=== PATIENT | male | born 1975 | race Caucasian/White ===

== ENCOUNTER 2022-06-06 09:20 | Emergency (ER) | payer OTHER, SELFPAY ==
--- NOTE | ~2022-06-06 | XR_ITS ---
EXAMINATION: XR CHEST CLINICAL INFORMATION: Cough COMPARISON: None TECHNIQUE: Frontal view of the chest was obtained. FINDINGS: No significant abnormality is noted involving the heart, lungs, mediastinum, bony thorax or soft tissues. A small hiatal hernia is present. Old healed left-sided fourth and fifth rib fractures are present. XR/XR chest 1V IMPRESSION: No acute intrathoracic disease.
[2022-06-06 09:39] VITALS: BP 120/79; PULSE 84; RESP 20; TEMP 36.9; O2SAT 97; BMI 21.2
--- NOTE | 2022-06-06 10:15 | ED.URI ---
HPI - URI/Sore Throat General Chief Complaint: Upper Respiratory Symptoms Stated Complaint: congestion sore throat headache Time Seen by Provider: 06/06/22 09:31 Source: patient Mode of arrival: ambulatory History of Present Illness HPI Narrative: 46-year-old male who presents with headache, cough, sore throat, chills but denies any GI or symptoms. He is an occasional everyday smoker. Related Data Allergies Allergy/AdvReac Type Severity Reaction Status Date / Time Unable to Assess Allergy Verified 06/06/22 10:13 Review of Systems Review of Systems: Pertinent positives and negatives as stated in [facility] Past Medical History Source: nursing notes reviewed Social History Social History Advance Directives: No Physical Exam Vital Signs: Vital Signs: Last Vital Signs Temp 98.5 F 06/06/22 09:39 Pulse 84 06/06/22 09:39 Resp 20 06/06/22 09:39 BP 120/79 06/06/22 09:39 Pulse Ox 97 06/06/22 09:39 O2 Del Method 06/06/22 09:39 BMI result Body Mass Index 21.2 VITAL SIGNS: Reviewed. GENERAL: Well developed, well nourished, in no acute distress. HEAD: Normocephalic/atraumatic EYES: PERRLA, EOMI EARS: Ext canals without abnormality, TMs non-bulging and non-erythematous NOSE: Nares patent bilateral OROPHARYNX: no oral lesions noted, posterior pharynx clear and non-erythematous without noted tonsillar enlargement/erythema/exudates NECK: Supple, no adenopathy LUNGS: Normal breath sounds. No adventitious sounds or accessory muscle use. SpO2<97> CARDIOVASCULAR: Regular rate and rhythm without noted murmurs, no JVD or lower extremity edema. ABDOMEN: Soft, non-tender, non-distended with bowel sounds. MUSCULOSKELETAL: No tenderness, deformities, or effusions noted on gross inspection. EXTREMITIES: No cyanosis, clubbing or edema. SKIN: Inspection of the skin reveals no rashes NEUROLOGIC: Alert and oriented x 4. Strength and sensation to light touch were grossly intact x 4. Medications Administered Discontinued Medications Generic Name Dose Route Start Last Admin Trade Name Freq PRN Reason Stop Dose Admin Acetaminophen 975 mg 06/06/22 10:13 06/06/22 10:29 Acetaminophen 325 Mg Tablet PO 06/06/22 10:14 975 mg ONCE ONE Administration Ibuprofen 400 mg 06/06/22 10:13 06/06/22 10:29 Ibuprofen 400 Mg Tablet PO 06/06/22 10:14 400 mg ONCE ONE Administration Medical Decision Making Medical Decision Making [facility] Narrative: 46-year-old male with who presents with suspected viral symptoms, not hypoxic nor is he tachycardic or tachypneic. On review of investigations my interpretation is as patient has viral syndrome consistent with being RSV positive. He was provided with combination analgesics and discharged home in stable condition. Differential Diagnosis Differential Diagnoses: The differential diagnosis associated with the presentation includes Please see the discussion above Lab Data [facility] Lab Attestation statement: I reviewed the patient's lab results. Please see the discussion above Labs: Lab Results 06/06/22 Range/Units 09:55 Influenza Type A (PCR) NEGATIVE (Negative) Influenza Type B (PCR) NEGATIVE (Negative) RSV RNA Qual (PCR) POSITIVE A (Negative) SARS-CoV-2 RNA (RT-PCR) NEGATIVE (Negative) Radiology Impression Radiologist Impression: My interpretation is in agreement with radiology's impression of the imaging study. Discharge Plan Discharge Clinical Impression: Viral syndrome, RSV infection Patient Disposition: Home, Self-Care Instructions: Respiratory Syncytial Virus (ED), Viral Syndrome (ED) Additional Instructions: 1. Continue to take [id number] Tylenol/ibuprofen as needed for symptom relief as well as using [id number] cough medication. 2. You have been diagnosed with RSV which is a virus for which there is no prescription medications available for. Your symptoms should resolve at days 7-10. Stay well hydrated. Return to the ER for any worsening symptoms. Referrals: Mariza Connors MD [Primary Care Provider] -
[2022-06-06] MEDS: Acetaminophen 325 MG TABLET 975 MG PO (10:29)
[2022-06-06] MEDS: Ibuprofen 400 MG TABLET PO (10:29)
[2022-06-06 10:38] LABS: Influenza A PCR NEGATIVE (Negative); Influenza B PCR NEGATIVE (Negative); Resp Syncy Virus RNA Qual PCR POSITIVE (Negative); SARS COV2 PCR INHOUSE NEGATIVE (Negative)
[2022-06-06 11:22] VITALS: O2SAT 98
== END 2022-06-06 11:27 | disposition home or self-care (01) ==
PROVIDERS: Emergency Provider Student in an Organized Health Care Education/Training Program; PCP Internal Medicine
DX: J06.9 Acute upper respiratory infection, unspecified (principal); Z20.822 Contact with and (suspected) exposure to COVID-19; Z20.828 Contact with and (suspected) exposure to other viral communicable diseases; Z79.899 Other long term (current) drug therapy
CPT/HCPCS: 0241U; 71045; 99283; 99284